=== PATIENT | female | born 1970 | race Caucasian/White ===

== ENCOUNTER 2023-07-22 11:02 | Outpatient (CLI) | payer BC, SELFPAY ==
--- NOTE | ~2023-07-22 | MM_ITS ---
EXAMINATION: MM screening loki BI w pablo HISTORY: Screening mammogram TECHNIQUE: Craniocaudal and mediolateral oblique 3-D tomosynthesis images were obtained and synthetic 2-D images were generated. CAD analysis was submitted and interpreted. COMPARISON: 03/03/2007 bilateral screening mammogram BREAST PARENCHYMAL COMPOSITION: There are scattered areas of fibroglandular density. FINDINGS: There is no evidence of suspicious mass, calcification, or architectural distortion to sugg est malignancy in either breast. There has been no suspicious interval change. IMPRESSION: 1. No mammographic evidence of malignancy. 2. Recommend routine screening mammography in one year. BI-RADS Category 1: Negative Reviewed, dictated and finalized at location A.
== END 2023-07-22 11:03 ==
DX: Z12.31 Encounter for screening mammogram for malignant neoplasm of breast (principal)
CPT/HCPCS: 77063; 77067

== ENCOUNTER 2024-08-10 08:30 | Outpatient (CLI) | payer BC, SELFPAY ==
--- NOTE | ~2024-08-10 | MMUS_ITS ---
EXAMINATION: MM diagnostic loki BI w pablo, US breast LT limited HISTORY: Palpable left breast lump TECHNIQUE: Additional 3-D tomosynthesis images of the breasts were performed and synthetic 2-D images were generated. CAD analysis was submitted and interpreted. High resolution Limited left breast ultr asound was performed. COMPARISON: 07/22/2023 BREAST PARENCHYMAL COMPOSITION: Not dense: There are scattered areas of fibroglandular density. FINDINGS: MAMMOGRAPHIC FINDINGS: There are multiple areas of benign oil cyst and fat necrosis in both breasts, possibly from prior tra claudia. No suspicious calcifications or architectural distortion. ULTRASOUND: Limited left breast ultrasound: At 2:00, 6 cm from the nipple in the area of concern there is an anechoic mass without internal vascu larity. This mass exhibits layering hyperechoic material with posterior shadowing, consistent with oi l cyst. No additional masses are identified in the left breast by ultrasound. IMPRESSION: 1. Probable benign left breast mass at 2:00, 6 cm from the nipple. 2. Recommend 6 month follow-up diagnostic left mammogram and Limited breast ultrasound. BI-RADS category 3, probably benign findings. Reviewed, dictated and finalized at location A. IMPRESSION: 1. Probable benign left breast mass at 2:00, 6 cm from the nipple. 2. Recommend 6 month follow-up diagnostic left mammogram and Limited breast ult rasound. BI-RADS category 3, probably benign findings.
== END 2024-08-10 08:31 | disposition home or self-care (01) ==
PROVIDERS: PCP Obstetrics & Gynecology Gynecology; Visit Provider Obstetrics & Gynecology Gynecology
DX: N63.21 Unspecified lump in the left breast, upper outer quadrant (principal)
CPT/HCPCS: 76642; 77062; 77066; G0279